=== PATIENT | female | born 1990 | race Two or more races ===

== ENCOUNTER 2021-03-08 06:45 | Inpatient (IN) | payer MEDICAID, OTHER ==
[~2021-03-08] VITALS: Ht 160 cm; Wt 67.6 kg
[2021-03-08] MEDS ORDERED: PREN-96 PO (07:18)
[2021-03-08] MEDS ORDERED: WITCH HAZEL-GLYCERIN PAD TOP PRN (08:45)
[2021-03-08] MEDS ORDERED: PROMETHAZINE HCL 25 MG/ML 1ML IV PRN (08:45)
[2021-03-08] MEDS ORDERED: LIDOCAINE 2%HCL (LOCAL ANESTH.) INJ 20ML MDV IJ PRN (08:45)
[2021-03-08] MEDS ORDERED: BUTORPHANOL TARTRATE 2 MG/1 ML VIAL IV PRN ×2 (08:45)
[2021-03-08] MEDS ORDERED: PHISODERM TOP SOLN 240ML BTL TOP PRN (08:45)
[2021-03-08] MEDS ORDERED: DERMOPLAST 60ML BOTTLE TOP PRN (08:45)
[2021-03-08 09:31] LABS: Basophils # (auto) 0 10 ^3/uL (0-0.2); Basophils % (auto) 0.7 % (0.0-2.0); Eosinophils # (auto) 0.1 10 ^3/uL (0-0.8); Eosinophils % (auto) 1.9 % (0.0-7.0); Hematocrit 40.9 % (36.0-46.0); Hemoglobin 13.3 g/dL (12.2-16.2); Mean Corpuscular Hgb Conc. 32.6 g/dL (32.0-36.0); Monocytes # (auto) 0.5 10 ^3/uL (0-1.3); Neutrophils # (auto) 4.3 10 ^3/uL (1.6-8.6); Neutrophils % (auto) 61.4 % (37.0-80.0); Nucleated Red Blood Cells % 0.1 %; Red Blood Cells 4.75 10^6/uL (4.0-5.20)
[2021-03-08 09:44] LABS: Urine Bacteria NONE SEEN /hpf (None Seen); Urine Blood 1+ /uL (Negative); Urine Specific Gravity 1.009 (1.001-1.035); Urine WBC 2 /hpf (0 - 5)
[2021-03-08 09:45] LABS: INR 0.98 (0.9-1.15); Partial Thromboplastin Time 26.5 sec (23.6-33.0)
[2021-03-08] MEDS: LACTATED RINGER'S 1,000 ML IV SCH ×3 (09:45→19:14)
[2021-03-08 09:50] LABS: Potassium 4.4 mmol/L (3.5-5.1)
[2021-03-08 09:58] LABS: Albumin 2.5 g/dL (3.4-5.0); BUN/Creatinine Ratio 18.4; Bilirubin, Total 0.2 mg/dL (0.2-1.0); Calcium 8.7 mg/dL (8.5-10.1); Total Protein 7.1 g/dL (6.4-8.2)
[2021-03-08 10:00] LABS: Alcohol, Urine < 3.0 mg/dL (0-10); Amphetamine Screen, Urine NEGATIVE (NEGATIVE); Barbiturate Scree,Urine NEGATIVE (NEGATIVE); Benzodiazephine Screen, Urine NEGATIVE (NEGATIVE); Cannabinoid Screen, Urine NEGATIVE (NEGATIVE); Cocaine Screen, Urine NEGATIVE (NEGATIVE); Opiate Scree,Urine NEGATIVE (NEGATIVE); Phencyclidine Screen, Urine NEGATIVE (NEGATIVE)
[2021-03-08] MEDS: miSOPROStol 50 MCG per PRE-CUT 1/2 TAB PO PRN ×2 (10:37→14:38)
[2021-03-08] MEDS ORDERED: ACETAMINOPHEN 325 MG TAB PO ONE (17:45)
[2021-03-08] MEDS ORDERED: LACT. RINGERS/OXYTOCIN 20UNITS 1,000 ML IV SCH (19:00)
[2021-03-08] MEDS ORDERED: miSOPROStol 100 mcg TAB SL PRN (19:00)
[2021-03-08] MEDS ORDERED: miSOPROStol 100 mcg TAB PR PRN (19:00)
[2021-03-08] MEDS ORDERED: METHYLERGONOVINE MALEATE 0.2 MG/ML AMP IM PRN (19:00)
[2021-03-08] MEDS ORDERED: TERBUTALINE SULFATE 1 MG/ML 1ML VIAL SC PRN (19:00)
[2021-03-08] MEDS ORDERED: LACT. RINGERS/OXYTOCIN 20UNITS 500 ML IV ONE ×2 (19:00→19:30)
[2021-03-08] MEDS ORDERED: TRANEXAMIC ACID 1,000 MG in SODIUM CHL 0.9% 100 ML IV PRN (20:00)
[2021-03-09] VITALS (7 sets, daily range): BP systolic 98–137; BP diastolic 56–80
[2021-03-09] MEDS ORDERED: ONDANSETRON ODT 4 MG TAB PO PRN (01:00)
[2021-03-09] MEDS: ACETAMINOPHEN 325 MG TAB PO PRN ×2 (01:35→07:13)
[2021-03-09] MEDS: IBUPROFEN 800 MG TAB PO SCH ×3 (05:58→18:04)
[2021-03-09 06:03] LABS: RPR Non Reactive (Non Reactive)
[2021-03-09] MEDS ORDERED: DOCUSATE SOD 100 MG CAP PO SCH (22:00)
[2021-03-10] MEDS: IBUPROFEN 800 MG TAB PO SCH ×3 (00:08→12:00)
[2021-03-10 03:00] VITALS: BP 119/80
[2021-03-10 06:46] VITALS: BP 100/57
[2021-03-10] MEDS: ACETAMINOPHEN 325 MG TAB PO PRN (07:29)
[2021-03-10 11:02] VITALS: BP 115/76
== END 2021-03-10 13:17 | disposition home or self-care (01) | DRG 560 ==
LOC: LDRP 06:45 → OBSVTOIN 08:35 → LDRP 08:36
PROVIDERS: ADMIT Obstetrics & Gynecology Obstetrics; ATTEND Obstetrics & Gynecology Obstetrics
PROC: 3E0DXGC Introduction of Other Therapeutic Substance into Mouth and Pharynx, External Approach (ICD-10-PCS; 2021-03-08)
PROC: 10E0XZZ Delivery of Products of Conception, External Approach (ICD-10-PCS; principal; 2021-03-09)
DX: O41.03X0 Oligohydramnios, third trimester, not applicable or unspecified (principal); Z37.0 Single live birth; O69.81X0 Labor and delivery complicated by cord around neck, without compression, not applicable or unspecified; Z20.822 Contact with and (suspected) exposure to COVID-19; Z3A.39 39 weeks gestation of pregnancy
CPT/HCPCS: 36415; 59025; 59409; 76818; 80053; 80307; 81001; 81002; 85025; 85610; 85730; 86592; 86850; 86900; 86901; 87426; 94760; 94762; 96360; 96361; 96365; 96366; G0378; J2590